=== PATIENT | female | born 1950 | race Caucasian/White ===

== ENCOUNTER → 2018-06-12 16:12 | Outpatient (CLI) | payer MEDICARE, SELFPAY ==
--- NOTE | 2018-06-12 14:40 | LES_PTH ---
PATIENT: AUGUST MENDEZ LOC: [facility] U#:[id number] AGE/SX: 75/F ROOM: RE06/12/[address]: Dr. 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 Dilated benign duct. Special stain for fungi is negative for organisms; matched control is appropriate. MELISA:varinder 06/14/18 MICROSCOPIC DESCRIPTION Slides are reviewed. GROSS DESCRIPTION Received is one container labeled with the patient's name and not further designated. The specimen consists of a piece of morales mucosal tissue measuring 1 x 0.2 x 0.1 cm. The specimen is totally submitted in one cassette. / MELISA:varinder 06/13/18 TC:5 CPT: 71070, 98787
== END ==
PROVIDERS: Visit Provider Otolaryngology Otolaryngology/Facial Plastic Surgery
DX: K13.21 Leukoplakia of oral mucosa, including tongue (principal)
CPT/HCPCS: 88305; 88307; 88312